=== PATIENT | male | born 1955 | race Caucasian/White ===

== ENCOUNTER → 2017-05-26 | Day surgery (SDC) | payer BC, OTHER ==
[~2017-05-26] MED LIST: IV RINGERS SOLUTION,LACTATED 1,000 ML IV ONE; LIDOCAINE 2% PF Vial for OR 5 ML VIAL. ONE; PROPOFOL 40 ML IV ONE
== END | disposition home or self-care (01) ==
LOC: SURG 11:23
PROVIDERS: ATTEND Internal Medicine Gastroenterology
DX: Z12.11 Encounter for screening for malignant neoplasm of colon (principal); K57.30 Diverticulosis of large intestine without perforation or abscess without bleeding; I10 Essential (primary) hypertension; K21.9 Gastro-esophageal reflux disease without esophagitis
CPT/HCPCS: 45378; J2704; J7120; J2001

== ENCOUNTER → 2020-01-05 | Outpatient (CLI) | payer MEDICARE ==
--- NOTE | 2020-01-05 13:52 | RAD ---
CT abdomen and pelvis without contrast PQRS statement: CT scans at this facility use dose reduction including either automated exposure control, iterative reconstructions, and /or weight based radiation dosing via mA and kV modification when appropriate to reduce radiation dose to as low as reasonably achievable. HISTORY: Abdominal pain with vomiting. Abdomen findings: 5 mm solid nodule left lower lobe image 14. Mild dependent subpleural groundglass densities likely atelectasis lung bases. Right coronary calcified plaque. Lumbar scoliosis and bulky disc osteophytes and facet spurs with spinal canal and neural foraminal stenoses. Hypodense liver likely fatty. Tiny gallstone. Very mild perinephric edema. No urinary calculi or hydronephrosis. Calcified likely aorta and iliac arteries. There appears be mild edema surrounding the head of pancreas extending to the root of small bowel mesentery suspicious for mild changes of pancreatitis, the tail the pancreas is atrophic there is indistinct 2 x 1 severe hypodensity of the distal tail the pancreas images 37-38 a small cyst or underlying mass lesion is possible. Adrenal glands and spleen are unremarkable. Sigmoid diverticulosis and wall thickening with minimal soft tissue edema along the mesenteric border without a perforated diverticulum low-grade diverticulitis is possible. Appendix is negative. No bowel obstruction. No abdominal fluid. Pelvis findings: Left internal iliac artery 1.4 cm fusiform aneurysm image 95 whereas the more normal proximal diameter of the vessel is 0.6 cm. Bladder is collapsed and there appears to be bladder wall thickening. No bladder calculi evident. Prostate fiducials. Rectum unremarkable. There is a 2 cm density of the left internal inguinal ring lateral which is a 3 cm focus of fat most likely changes of hernia repair with a mesh plug of a small recurrent 3 cm hernia lateral of the plug. The spermatic cord extends inferior of this density ruling out a undescended testicle. IMPRESSION: 1. Mild edema at the head of the pancreas raising suspicion of acute pancreatitis. Separately the distal tail of pancreas has a subtle 2 x 1 cm hypodensity raising the possibility of a focal cystic or solid lesion. This could be further assessed with outpatient MR imaging. 2. Sigmoid diverticulosis with mild groundglass mesenteric edema raising the possibility of low-grade diverticulitis. 3. Left inguinal hernia repair as described above. 4. 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 5. Appendix is negative. 6. 5 mm solid nodule of the left lower lobe. Per Fleischner guidelines if the patient has risk factors for malignancy optional CT follow-up in 12 months would be advised, otherwise no follow-up is necessary. Electronically signed by: Jose C Zhu MD (01/05/2020 1:50 PM) [id number]
== END | disposition home or self-care (01) ==
LOC: CT 12:46
PROVIDERS: ATTEND Family Medicine
DX: C25.0 Malignant neoplasm of head of pancreas (principal); K85.00 Idiopathic acute pancreatitis without necrosis or infection; R11.2 Nausea with vomiting, unspecified; J98.11 Atelectasis; M41.86 Other forms of scoliosis, lumbar region; I25.10 Atherosclerotic heart disease of native coronary artery without angina pectoris; M25.78 Osteophyte, vertebrae; K76.0 Fatty (change of) liver, not elsewhere classified; I72.3 Aneurysm of iliac artery; K40.90 Unilateral inguinal hernia, without obstruction or gangrene, not specified as recurrent; K57.30 Diverticulosis of large intestine without perforation or abscess without bleeding; K57.32 Diverticulitis of large intestine without perforation or abscess without bleeding
CPT/HCPCS: 74176

== ENCOUNTER 2020-03-06 14:39 | Inpatient (IN) | payer MEDICARE ==
[~2020-03-06] VITALS: Ht 165.1 cm; Wt 66.3 kg
[2020-03-06] MEDS ORDERED: ONDANSETRON ODT 4 MG TAB.RAPDIS PO PRN (15:30)
[2020-03-06] MEDS ORDERED: IV 1/2 NORMAL SALINE 1,000 ML IV PRN (15:30)
[2020-03-06 15:32] VITALS: BP 119/78
[2020-03-06] MEDS ORDERED: PROC10TA57 PO (15:46)
[2020-03-06] MEDS ORDERED: GUAI600T47 PO (15:46)
[2020-03-06] MEDS ORDERED: OMEP20CA16 PO (15:46)
[2020-03-06] MEDS ORDERED: POTA8TAB45 PO (15:46)
[2020-03-06] MEDS ORDERED: TRIA50CA PO (15:46)
[2020-03-06] MEDS ORDERED: TAMS0.4C97 PO (15:46)
[2020-03-06] MEDS ORDERED: METO-239 PO (15:46)
[2020-03-06] MEDS ORDERED: PYRI60TA PO (15:46)
--- NOTE | 2020-03-06 16:05 | RAD ---
EXAM: Chest, 2 views. HISTORY: Pancreatic cancer. COMPARISON: None. FINDINGS: 2 views of the chest are obtained. There is suspected lateral right mid thoracic and bilateral lower lobe interstitial infiltrate. There is no pleural effusion or pneumothorax. The heart is normal in size. IMPRESSION: Suspected multifocal interstitial infiltrate involving the lateral right upper and middle lobes and bilateral lower lobes. No consolidated pneumonia is seen. Electronically signed by: Rita Murrieta MD (03/06/2020 4:02 PM) [id number]
--- NOTE | 2020-03-06 16:59 | RAD ---
EXAM: CT Abdomen and Pelvis without IV contrast INDICATION: Reason: ab pain / Spl. Instructions: / History: TECHNIQUE: Multi-detector row CT images were acquired from the lung bases through the abdomen and pelvis without the use of IV contrast. Sagittal and coronal images were acquired from the transaxial data. All CT scans performed at this facility utilize dose optimization techniques as appropriate to the exam, including the following: Automated exposure control and adjustment of the mA and/or KV according to patient size (this includes techniques or standardized protocols for targeted exams where dose is indication/reason for exam). ORAL CONTRAST: None COMPARISON: 01/05/20 CT abd pel without FINDINGS: The absence of IV contrast limits evaluation of soft tissue pathology. LOWER CHEST: Unremarkable LIVER: Severe diffuse hepatic steatosis is redemonstrated. BILIARY SYSTEM: Gallbladder is mildly distended. Bile ducts are not dilated. PANCREAS: Soft tissue stranding around the pancreatic head is slightly more apparent than before and is nonspecific. No discrete fluid collection or ductal dilation is apparent. SPLEEN: Unremarkable ADRENALS: Unremarkable KIDNEYS & URETERS: No hydronephrosis. Mild bilateral perirenal soft tissue stranding is present. BLADDER: Bladder is partly contracted. Nonspecific diffuse bladder wall thickening is present. REPRODUCTIVE ORGANS: Unremarkable GASTROINTESTINAL: There is diffuse interlobular colonic wall thickening present in scattered lesions, primarily affecting the rectosigmoid colon where numerous diverticuli are also present but also affecting the right colon to a similar extent. Appendix is normal. Stomach and small bowel are relatively unremarkable. There is a fat-containing left inguinal hernias that a portion of the distal descending colon protrudes into. MESENTERY/PERITONEUM/RETROPERITONEUM: There are bilateral inguinal hernias that contain ovoid soft tissue, favored to represent small amounts of fluid. There is new perihepatic ascites. VASCULAR: Scattered arterial calcifications. No aneurysm. LYMPH NODES: Right groin soft tissue fullness is favored to reflect fluid no definite lymphadenopathy is appreciated OSSEOUS & SOFT TISSUES: Unremarkable IMPRESSION: Superimposed on pre-existing severe diffuse hepatic steatosis are new findings of ascites and worsening findings of colitis. There is equivocal evidence of acute pancreatitis around the pancreatic head as well. Correlate clinically. No discrete fluid collection identified. Electronically signed by: Mohan Tirado MD (03/06/2020 4:56 PM) [facility] [place]
[2020-03-06 17:19] LABS: BASO % 1 % (0-3); EOS % 0 % (0-3); HEMATOCRIT 40.6 % (39.0-53.0); HEMOGLOBIN 14.2 g/dL (13.0-17.5); LYMPH # 0.3 x10^3/uL (1.0-4.8); LYMPH % 4 % (24-48); MEAN CORPUSCULAR HEMOGLOBIN 36 pg (25-35); MEAN CORPUSCULAR HGB CONC 35 g/dL (31-37); MEAN CORPUSCULAR VOLUME 102 fL (79-100); MONO # 0.7 x10^3/uL (0.0-1.1); MONO % 11 % (0-9); NEUT # 5.9 x10^3uL (1.8-7.7); NEUT % 85 % (31-73); PLATELET COUNT 107 x10^3/uL (140-400); RED CELL DISTRIBUTION WIDTH 16.2 % (11.5-14.5); WHITE BLOOD COUNT 6.9 x10^3/uL (4.0-11.0)
[2020-03-06 17:27] LABS: ALBUMIN 2.3 g/dL (3.4-5.0); ALBUMIN/GLOBULIN RATIO 0.5 (1.0-1.7); CALCIUM 8.6 mg/dL (8.5-10.1); CREATININE 0.8 mg/dL (0.7-1.3); GFR 96.7; TOTAL BILIRUBIN 11.9 mg/dL (0.2-1.0); TOTAL PROTEIN 6.6 g/dL (6.4-8.2)
[2020-03-06 17:38] LABS: POTASSIUM 2.8 mmol/L (3.5-5.1)
[2020-03-06] MEDS ORDERED: HALOPERIDOL LACT 5 MG/ML VIAL. IM PRN (18:00)
[2020-03-06] MEDS: POTASSIUM CHLORIDE 10MEQ 100 ML IV SCH ×4 (18:00→21:21)
[2020-03-06] MEDS ORDERED: chlordiazePOXIDE HCL 25 MG CAPSULE PO PRN (18:00)
[2020-03-06] MEDS ORDERED: LORazepam 1 MG TABLET PO PRN (18:00)
[2020-03-06] MEDS ORDERED: cloNIDine HCL 0.1 MG TABLET PO PRN (18:00)
[2020-03-06] MEDS: IV 1/2 NORMAL SALINE 1,000 ML IV SCH (19:03)
[2020-03-06 20:46] VITALS: BP 124/77
[2020-03-06 21:59] LABS: CLARITY,URINE CLEAR; COLOR,URINE AMBER; GLUCOSE,URINE 100 mg/dL (NEG)
[2020-03-06 22:00] LABS: BILIRUBIN,URINE LARGE (NEG)
[2020-03-06 22:01] LABS: NITRITE,URINE NEG (NEG); RBC,URINE 0 /HPF (0-2)
[2020-03-06 22:02] LABS: BACTERIA,URINE FEW /HPF (0-FEW)
[2020-03-06 22:44] VITALS: BP 131/76
[2020-03-07 02:26] LABS: CREATININE 0.7 mg/dL (0.7-1.3); GFR 112.8
[2020-03-07 02:29] LABS: POTASSIUM 2.3 mmol/L (3.5-5.1)
[2020-03-07] MEDS: POTASSIUM CHLORIDE 10MEQ 100 ML IV SCH ×8 (02:41→13:57)
[2020-03-07 02:42] VITALS: BP 128/75
[2020-03-07] MEDS: IV 1/2 NORMAL SALINE 1,000 ML IV SCH ×4 (02:44→17:00)
[2020-03-07 05:11] VITALS: BP 127/72
[2020-03-07 08:58] LABS: CREATININE 0.7 mg/dL (0.7-1.3); GFR 112.8
[2020-03-07] MEDS ORDERED: FLU VACC QS 2020-21(6MOS+)/PF 0.5 ML SYRINGE. VAX IM ONE (09:00)
[2020-03-07 09:04] LABS: POTASSIUM 2.3 mmol/L (3.5-5.1)
[2020-03-07] MEDS ORDERED: ELECTROLYTE (NON-ICU) PROTOCOL. MC PRN (09:15)
[2020-03-07 10:56] VITALS: BP 154/77
[2020-03-07 11:15] LABS: BGAS PH 7.58 (7.35-7.46)
[2020-03-07 14:28] VITALS: BP 114/74
[2020-03-07] MEDS: MVI, ADULT NO.4 WITH VIT K 10 ML, THIAMINE INJ 100 MG, FOLIC ACID INJ 1 MG in IV NORMAL... IV SCH (16:16)
[2020-03-07 19:01] VITALS: BP 131/83
[2020-03-07] MEDS: LACTOBACILLUS RHAMNOSUS GG 1 CAPSULE. PO SCH (20:57)
[2020-03-07 23:28] VITALS: BP 149/81
[2020-03-08] MEDS: IV 1/2 NORMAL SALINE 1,000 ML IV SCH ×4 (02:27→15:02)
--- NOTE | 2020-03-08 02:39 | PN ---
DATE: 03/07/2020 SUBJECTIVE: A 64-year-old male in with pancreatic cancer, biliary obstruction, acute pancreatitis, dehydration, alcohol withdrawal. The patient is very somnolent; however, he was running a temperature of 101.1 (NC). OBJECTIVE: VITAL SIGNS: Blood pressure 154/77, respiratory rate 20, pulse 101. GENERAL: The patient is barely arousable, but the nurses have been just giving some type of sedative to help him relax a little, Librium. LUNGS: Diminished, but basically clear. CARDIOVASCULAR: Regular sinus rhythm. ABDOMEN: Soft, nontender. EXTREMITIES: No clubbing, cyanosis, nor edema. NEUROLOGIC: Intact. IMPRESSION: The patient is on IV antibiotic therapy of Levaquin and Rocephin and we will continue to monitor his progression as we progress along with this young man. Otherwise, he has noted a pancreatic cancer, hyperbilirubinemia, acute pancreatitis, pneumonia of unspecified etiology, alcohol withdrawal, hypokalemia, metabolic alkalosis, diffuse hepatic steatosis, ascites, colitis (NC). PLAN: As above. We will continue with antibiotic therapy and make further evaluation on him as indicated. NATHANAEL GUPTA MD DR: DORIS/dallin JOB#: [id number] / [id number]
[2020-03-08 06:20] VITALS: BP 115/73
[2020-03-08] MEDS: MVI, ADULT NO.4 WITH VIT K 10 ML, THIAMINE INJ 100 MG, FOLIC ACID INJ 1 MG in IV NORMAL... IV SCH (08:19)
[2020-03-08 08:32] LABS: BASO % 0 % (0-3); EOS % 0 % (0-3); HEMATOCRIT 40.7 % (39.0-53.0); HEMOGLOBIN 13.8 g/dL (13.0-17.5); LYMPH # 0.3 x10^3/uL (1.0-4.8); LYMPH % 5 % (24-48); MEAN CORPUSCULAR HEMOGLOBIN 35 pg (25-35); MEAN CORPUSCULAR HGB CONC 34 g/dL (31-37); MEAN CORPUSCULAR VOLUME 104 fL (79-100); MONO # 0.6 x10^3/uL (0.0-1.1); MONO % 11 % (0-9); NEUT # 4.7 x10^3uL (1.8-7.7); NEUT % 83 % (31-73); PLATELET COUNT 83 x10^3/uL (140-400); RED BLOOD COUNT 3.91 x10^6/uL (4.30-5.70); RED CELL DISTRIBUTION WIDTH 16.3 % (11.5-14.5); WHITE BLOOD COUNT 5.6 x10^3/uL (4.0-11.0)
[2020-03-08 08:49] LABS: CALCIUM 7.2 mg/dL (8.5-10.1); CREATININE 0.7 mg/dL (0.7-1.3); GFR 112.8
[2020-03-08 08:58] LABS: POTASSIUM 2.5 mmol/L (3.5-5.1)
[2020-03-08] MEDS: POTASSIUM CHLORIDE 10MEQ 100 ML IV SCH ×8 (10:43→22:15)
[2020-03-08] MEDS: LACTOBACILLUS RHAMNOSUS GG 1 CAPSULE. PO SCH ×2 (10:58→22:36)
[2020-03-08 11:30] VITALS: BP 128/81
[2020-03-08] MEDS ORDERED: AZITHROMYCIN 250 MG TABLET. PO SCH (14:15)
[2020-03-08] MEDS ORDERED: AZITHROMYCIN 250 MG in IV NORMAL SALINE 250ML 250 ML IV SCH (15:00)
[2020-03-08] MEDS: AZITHROMYCIN 500 MG in IV NORMAL SALINE 250ML 250 ML IV SCH (15:31)
[2020-03-08 15:56] VITALS: BP 110/65
[2020-03-08 16:43] LABS: CALCIUM 7.3 mg/dL (8.5-10.1); CREATININE 0.6 mg/dL (0.7-1.3); GFR 134.8
[2020-03-08 16:47] LABS: POTASSIUM 2.8 mmol/L (3.5-5.1)
[2020-03-08 18:56] VITALS: BP 122/79
--- NOTE | 2020-03-08 19:37 | PN ---
DATE: 03/08/2020 SUBJECTIVE: A 64-year-old gentleman with pancreatitis, colitis. The patient is resting fairly comfortably, still very jaundiced. No complaints. Blood pressure 115/70, respiratory rate 20, pulse 100, low-grade temperature of 99. The patient did have suspected infiltrates noted with pneumonia with his colitis. He is on Rocephin and Levaquin. COVID-19 is still pending. It is still low with his potassium where he is on electrolyte replacement. We will repeat that. His INR is 1.6, so I do not really see the need to go ahead and adjust for anything there as far as blood thinners. OBJECTIVE: LUNGS: Otherwise, the patient's lungs are diminished, poor breath sounds. CARDIOVASCULAR: Tachycardic. ABDOMEN: Soft, protuberant, bloated. Positive bowel sounds. Jaundiced all over. EXTREMITIES: No clubbing, cyanosis or edema. NEUROLOGIC: Intact. The patient's family has been notified of the situation. IMPRESSION: Therefore, pancreatitis, pneumonia, colitis, hyperbilirubinemia, alcohol withdrawal, hypokalemia, metabolic alkalosis, diffuse hepatic steatosis, ascites. NATHANAEL GUPTA MD DR: DORIS/dallin JOB#: [id number] / [id number]
[2020-03-08] MEDS: CLINDAMYCIN 600MG PREMIX 50 ML IV SCH (22:37)
[2020-03-08 22:53] VITALS: BP 111/73
[2020-03-09] MEDS: IV 1/2 NORMAL SALINE 1,000 ML IV SCH ×2 (02:30→11:02)
[2020-03-09 06:05] VITALS: BP 134/86
[2020-03-09] MEDS: CLINDAMYCIN 600MG PREMIX 50 ML IV SCH ×2 (06:09→14:00)
[2020-03-09] MEDS: MVI, ADULT NO.4 WITH VIT K 10 ML, THIAMINE INJ 100 MG, FOLIC ACID INJ 1 MG in IV NORMAL... IV SCH (08:57)
[2020-03-09] MEDS: LACTOBACILLUS RHAMNOSUS GG 1 CAPSULE. PO SCH ×2 (09:00→20:52)
[2020-03-09 10:43] VITALS: BP 138/85
[2020-03-09] MEDS ORDERED: ELECTROLYTE (NON-ICU) PROTOCOL. MC PRN (12:45)
[2020-03-09] MEDS: POTASSIUM CHLORIDE 30 MEQ in IV 1/2 NORMAL SALINE 1,000 ML IV SCH (13:39)
[2020-03-09] MEDS: AZITHROMYCIN 500 MG in IV NORMAL SALINE 250ML 250 ML IV SCH (15:12)
[2020-03-09 15:29] VITALS: BP 130/84
[2020-03-09 19:12] VITALS: BP_SYST 110; BP_SYST 113; BP_DIAS 65; BP_DIAS 74
--- NOTE | 2020-03-09 22:14 | PN ---
DATE: SUBJECTIVE: A 64-year-old gentleman in with acute pancreatitis and colitis. OBJECTIVE: GENERAL: The patient actually looks a little less jaundiced today than he has. He is still basically not responding very well. VITAL SIGNS: Blood pressure 138/85, respiratory rate 24, pulse 100. He is down to afebrile. He was up to 99.9. He continues on IV antibiotic therapy. LUNGS: The patient's lungs are diminished. He cannot take a deep breath. ABDOMEN: Soft, nontender. No rebound or guarding. Positive bowel sounds, no hepatosplenomegaly noted except in the pancreatic area where he does grimace a little bit on palpation. Positive bowel sounds. Some bloating noted. EXTREMITIES: No clubbing, cyanosis, nor edema. NEUROLOGIC: The patient is very somnolent and basically unresponsive. LABORATORY DATA: The patient's potassium is still low at 2.8. He has been placed on additional fluids with potassium in it and sodium in it as well as making further evaluation. He cannot swallow right now, so we are having to give him everything by IV. He is on a banana bag as well from an alcohol withdrawal. IMPRESSION: Pancreatitis, pneumonia of unspecified etiology, bilateral colitis, hyperbilirubinemia, alcohol withdrawal, hypokalemia, metabolic alkalosis, diffuse hepatic steatosis and ascites. PLAN: Continue with present therapy, get that potassium up on his hypokalemia and make further evaluation on him as indicated. NATHANAEL GUPTA MD DR: DORIS/dallin JOB#: [id number] / [id number]
[2020-03-10] MEDS: CLINDAMYCIN 600MG PREMIX 50 ML IV SCH ×4 (00:09→22:13)
[2020-03-10 00:19] VITALS: BP 104/73
[2020-03-10] MEDS: POTASSIUM CHLORIDE 30 MEQ in IV 1/2 NORMAL SALINE 1,000 ML IV SCH ×3 (03:31→20:28)
[2020-03-10 06:44] VITALS: BP 145/72
[2020-03-10 07:22] LABS: CALCIUM 7.5 mg/dL (8.5-10.1); CREATININE 0.6 mg/dL (0.7-1.3); GFR 134.8
[2020-03-10] MEDS: LACTOBACILLUS RHAMNOSUS GG 1 CAPSULE. PO SCH ×2 (09:00→20:28)
[2020-03-10] MEDS ORDERED: [UNRECOGNIZED DRUG - REMARK] IV ONE (10:00)
[2020-03-10 10:20] VITALS: BP 112/75
[2020-03-10] MEDS: AZITHROMYCIN 500 MG in IV NORMAL SALINE 250ML 250 ML IV SCH (13:43)
[2020-03-10 15:19] VITALS: BP 81/59
[2020-03-10 18:56] VITALS: BP 113/74
[2020-03-10 23:19] VITALS: BP 125/87
--- NOTE | 2020-03-11 00:49 | PN ---
DATE: SUBJECTIVE: The patient came in with nausea, jaundice, pancreatitis, alcohol withdrawal. The patient is little bit more alert this morning, he is able to utter few words and also respond to basic questions. He denies any abdominal pain. Blood pressure 110/70, respiratory rate 20, pulse 90, he is running low-grade temperature. He did have that chest x-ray that showed a pneumonic density, which probably is related to his fever or possible pancreatitis. OBJECTIVE: VITAL SIGNS: His blood pressure is 110/70, respiratory rate 20, pulse 90. As noted, temperature of 99.4. GENERAL: The patient is little bit more alert than he has been, still jaundiced, but not quite as bad as he has been. LUNGS: Diminished. CARDIOVASCULAR: Regular sinus rhythm. ABDOMEN: Soft, diffuse tenderness, no rebound or guarding. Positive bowel sounds, no hepatosplenomegaly. EXTREMITIES: No clubbing, cyanosis or edema. LABORATORY DATA: The patient's labs are looking pretty good. His potassium, which has been a problem in the 2 range just stayed up at 3.3 and we will continue to monitor him on that and hopefully make arrangements to have possibly even long-term care. If we were able to find him a facility since he will need continued rehabilitation. IMPRESSION: Abdominal pain with nausea, vomiting, dehydration, exposure, hypotension. Blood pressure did drop. We will continue to monitor that. Continue with fluids, 80/60, respiratory rate 22, pulse 90 latest vital signs. Otherwise is pancreatitis, pneumonia, colitis, hyperbilirubinemia, alcohol withdrawal, hypokalemia, metabolic alkalosis, diffuse hepatic steatosis, possible multifocal interstitial infiltrate, will be followed up accordingly on that. NATHANAEL GUPTA MD DR: DORIS/dallin JOB#: [id number] / [id number]
[2020-03-11] MEDS: POTASSIUM CHLORIDE 30 MEQ in IV 1/2 NORMAL SALINE 1,000 ML IV SCH (05:14)
[2020-03-11] MEDS: CLINDAMYCIN 600MG PREMIX 50 ML IV SCH ×3 (05:15→22:05)
[2020-03-11 06:27] LABS: CREATININE 0.5 mg/dL (0.7-1.3); GFR 166.4; POTASSIUM 3.1 mmol/L (3.5-5.1)
[2020-03-11 06:32] LABS: CALCIUM 7.1 mg/dL (8.5-10.1)
[2020-03-11 06:34] VITALS: BP 138/86
[2020-03-11] MEDS: DEXTROSE IV SCH ×2 (08:15→22:01)
[2020-03-11] MEDS: POTASSIUM CHLORIDE IV SCH ×2 (08:15→22:01)
[2020-03-11] MEDS: NACL IV SCH ×2 (08:15→22:01)
[2020-03-11] MEDS: LACTOBACILLUS RHAMNOSUS GG 1 CAPSULE. PO SCH ×2 (08:26→21:00)
[2020-03-11] MEDS ORDERED: MVI, ADULT NO.4 WITH VIT K 10 ML, THIAMINE INJ 100 MG, FOLIC ACID INJ 1 MG in IV NORMAL... IV SCH (09:00)
[2020-03-11 11:00] VITALS: BP 118/78
[2020-03-11 15:00] VITALS: BP 126/70
[2020-03-11] MEDS: AZITHROMYCIN 500 MG in IV NORMAL SALINE 250ML 250 ML IV SCH (15:28)
--- NOTE | 2020-03-11 16:57 | RAD ---
EXAM: PORTABLE CHEST 1V 03/11/2020 6:28 PM CLINICAL INDICATION: Pneumonia COMPARISON: Chest radiograph 03/06/2020 TECHNIQUE: AP upright view of the chest FINDINGS: The heart and mediastinum are normal. Lungs are hypoexpanded. There are increased consolidative opacities in the right upper lobe. The left lung is clear. No pleural effusion or pneumothorax. Pulmonary vascularity is normal. The thoracic skeleton is intact. IMPRESSION: Worsened right upper lobe pneumonia. Electronically signed by: Kaye Neff MD (03/11/2020 4:54 PM) [id number]
[2020-03-11 18:44] VITALS: BP 126/79
[2020-03-11 20:13] VITALS: BP 139/83
[2020-03-12 00:22] VITALS: BP 122/79
[2020-03-12] MEDS: POTASSIUM CHLORIDE IV SCH (04:33)
[2020-03-12] MEDS: NACL IV SCH (04:33)
[2020-03-12] MEDS: DEXTROSE IV SCH (04:33)
[2020-03-12] MEDS: CLINDAMYCIN 600MG PREMIX 50 ML IV SCH ×3 (05:36→20:42)
[2020-03-12 05:49] VITALS: BP 119/75
[2020-03-12] MEDS: LACTOBACILLUS RHAMNOSUS GG 1 CAPSULE. PO SCH ×2 (09:00→20:40)
[2020-03-12 10:47] VITALS: BP 110/70
[2020-03-12] MEDS: AA 3%/ELECTROLYTE-TPN SOLN/GLY 1,000 ML IV SCH (10:54)
--- NOTE | 2020-03-12 11:16 | PN ---
DATE: SUBJECTIVE: A 64-year-old male who actually was again a little bit more alert today, although he pretty much does not like to get up. He is confined to bed and unfortunately, he has an increase in his pneumonic process as noted on the chest x-ray. The patient presently was on azithromycin, clindamycin and Rocephin but apparently the right upper lobe pneumonia is progressing per chest x-ray although the patient really does not communicate well enough to determine that. OBJECTIVE VITAL SIGNS: He is afebrile, blood pressure 126/70, respiratory rate 18, pulse 86. GENERAL: The patient is arousable. Makes some eye contact. Does talk a little bit, but by the same token was not really able to express himself very easily. LUNGS: Diminished, primarily in the right upper lobe. CARDIOVASCULAR: Regular sinus rhythm. EXTREMITIES: No clubbing, ____. ABDOMEN: Soft, still distended, but not quite as bad as it has been. 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 IMPRESSION: Pneumonia, hypokalemia, alcohol detox, pancreatitis, colitis, hyperbilirubinemia, alcohol withdrawal, metabolic alkalosis, diffuse hepatic steatosis, ascites. PLAN: We will continue on IV antibiotic therapy for now. We will discuss with family their wishes for further aggressive therapy and the like. NATHANAEL GUPTA MD DR: DORIS/dallin JOB#: [id number] / [id number]
[2020-03-12 15:08] VITALS: BP 123/85
[2020-03-12] MEDS: AZITHROMYCIN 500 MG in IV NORMAL SALINE 250ML 250 ML IV SCH (15:34)
[2020-03-12 20:11] VITALS: BP 130/84
[2020-03-13 00:02] VITALS: BP 127/88
[2020-03-13] MEDS: AA 3%/ELECTROLYTE-TPN SOLN/GLY 1,000 ML IV SCH ×2 (01:55→21:32)
[2020-03-13] MEDS: CLINDAMYCIN 600MG PREMIX 50 ML IV SCH ×3 (05:53→21:42)
[2020-03-13 06:00] VITALS: BP 132/85
[2020-03-13] MEDS: LACTOBACILLUS RHAMNOSUS GG 1 CAPSULE. PO SCH ×2 (09:00→21:00)
[2020-03-13 11:05] VITALS: BP 102/76
--- NOTE | 2020-03-13 12:56 | PN ---
DATE: SUBJECTIVE: A 64-year-old male in with pneumonia, possible alcohol detoxification, jaundice, a little bit more alert, not very much, very lethargic, but was able to mumble a few words. OBJECTIVE: VITAL SIGNS: Blood pressure 130/84, respiratory rate 20, pulse 90, afebrile. GENERAL: The patient arousable, but not by much. CVR: Exam is regular sinus rhythm. ABDOMEN: Soft, nontender. LUNGS: Show diminished breath sounds in the right upper lobe. IMPRESSION: Right upper lobe pneumonia, hypokalemia, alcohol detoxification, pancreatitis, colitis, hyperbilirubinemia, alcohol withdrawal, metabolic alkalosis, diffuse hepatic steatosis and ascites. PLAN: We will put him on a procalamine drip for additional calories and see if he can start to eat. We are trying to get him placed into a skilled facility to continue IV antibiotic therapy in lieu of the fact that he still continues to have this pneumonia and he is very sedate, but that is not helping matters. NATHANAEL GUPTA MD DR: DORIS/dallin JOB#: [id number] / [id number]
[2020-03-13 15:03] LABS: BASO # 0.1 x10^3/uL (0.0-0.2); BASO % 2 % (0-3); EOS % 1 % (0-3); HEMOGLOBIN 14.2 g/dL (13.0-17.5); LYMPH # 0.4 x10^3/uL (1.0-4.8); LYMPH % 5 % (24-48); MEAN CORPUSCULAR HEMOGLOBIN 36 pg (25-35); MEAN CORPUSCULAR HGB CONC 35 g/dL (31-37); MEAN CORPUSCULAR VOLUME 104 fL (79-100); MONO # 0.8 x10^3/uL (0.0-1.1); MONO % 10 % (0-9); NEUT # 6.9 x10^3uL (1.8-7.7); NEUT % 84 % (31-73); PLATELET COUNT 177 x10^3/uL (140-400); RED BLOOD COUNT 3.96 x10^6/uL (4.30-5.70); RED CELL DISTRIBUTION WIDTH 17.5 % (11.5-14.5); WHITE BLOOD COUNT 8.2 x10^3/uL (4.0-11.0)
[2020-03-13 15:10] LABS: CALCIUM 7.6 mg/dL (8.5-10.1); CREATININE 0.8 mg/dL (0.7-1.3); GFR 96.7
[2020-03-13 15:15] VITALS: BP 91/67
[2020-03-13 15:15] LABS: POTASSIUM 2.7 mmol/L (3.5-5.1)
[2020-03-13] MEDS: POTASSIUM CHLORIDE 10MEQ 100 ML IV SCH ×4 (15:33→19:22)
[2020-03-13] MEDS: AZITHROMYCIN 500 MG in IV NORMAL SALINE 250ML 250 ML IV SCH (15:47)
[2020-03-13 20:20] VITALS: BP 123/80
[2020-03-13 22:32] VITALS: BP 94/60
[2020-03-14 05:04] VITALS: BP 121/84
[2020-03-14] MEDS: CLINDAMYCIN 600MG PREMIX 50 ML IV SCH ×3 (05:06→21:03)
[2020-03-14 06:32] LABS: CALCIUM 7.5 mg/dL (8.5-10.1); CREATININE 0.7 mg/dL (0.7-1.3); GFR 112.8
[2020-03-14 06:34] LABS: POTASSIUM 2.9 mmol/L (3.5-5.1)
[2020-03-14] MEDS ORDERED: POTASSIUM BICARB 10 MEQ EFFERVESCENT TABLET. PO ONE (07:00)
[2020-03-14] MEDS: SPIRONOLACTONE 25 MG TABLET PO SCH (08:31)
[2020-03-14] MEDS: LACTOBACILLUS RHAMNOSUS GG 1 CAPSULE. PO SCH ×2 (08:31→19:59)
[2020-03-14 10:39] VITALS: BP 120/80
--- NOTE | 2020-03-14 14:57 | PN ---
DATE: SUBJECTIVE: A 64-year-old gentleman, little bit more alert today than he has been. Physical therapy actually got him up and moved him around a little bit. He is eating a little better. He is on procalamine for nutrition, still very weak, still needs rehabilitation. Still needs IV antibiotic therapy for his chest x-ray that shows a right upper lobe pneumonia, but for the first time he has been able to get out of bed of course with double assistance. OBJECTIVE: VITAL SIGNS: Blood pressure approximately 90/70, respiratory rate 20, pulse 110, afebrile. HEENT: The patient's head was atraumatic, normocephalic. Eyes: PERRLA without jaundice. Mouth and Throat: Normal. NECK: Supple. LUNGS: Diminished throughout. The patient has a decreased affect, still jaundiced, but markedly improved in that regard. The patient's white count, hemoglobin, hematocrit are still stable. The patient had a potassium drop of 2.7 and I will try to adjust that with pharmacy on his peripheral nutritional supplement. Otherwise, the patient is making fairly good progress and will continue with the TPN there. IMPRESSION: Sepsis, pneumonia post-alcohol withdrawal, severe hypokalemia, hyperbilirubinemia, alcohol detox, pancreatitis, colitis, severe malnutrition, general debilitation overall. NATHANAEL GUPTA MD DR: DORIS/dallin JOB#: [id number] / [id number]
[2020-03-14 15:29] VITALS: BP 109/75
[2020-03-14] MEDS: AZITHROMYCIN 500 MG in IV NORMAL SALINE 250ML 250 ML IV SCH (15:30)
[2020-03-14 20:15] VITALS: BP 114/74
[2020-03-14 22:01] VITALS: BP 109/72
[2020-03-15 05:00] VITALS: BP 100/66
[2020-03-15] MEDS: CLINDAMYCIN 600MG PREMIX 50 ML IV SCH ×3 (05:03→21:45)
[2020-03-15 11:21] VITALS: BP 93/57
[2020-03-15] MEDS: LACTOBACILLUS RHAMNOSUS GG 1 CAPSULE. PO SCH ×2 (11:29→21:44)
[2020-03-15] MEDS: SPIRONOLACTONE 25 MG TABLET PO SCH (11:30)
--- NOTE | 2020-03-15 14:57 | RAD ---
Examination: PORTABLE CHEST 1V History: Reason: pneumnoia / Spl. Instructions: / History: Comparison/Correlation: 03/11/2020 Findings: Portable frontal view of the chest was obtained. Decreased right lateral mid to lower thoracic infiltrate is present. Left lung field is clear. No pneumothorax. No new infiltrates. No significant or definite effusion. Impression: Decreased right lung infiltrate. Electronically signed by: Robin Machado MD (03/15/2020 2:54 PM) [id number]
[2020-03-15 15:06] VITALS: BP 98/65
--- NOTE | 2020-03-15 16:11 | PN ---
DATE: SUBJECTIVE: The patient is actually doing a little bit better, was working with the physical therapist, still needs quite a bit of attention getting out of bed and walking, but actually seems to be doing well. He still has right upper lobe pneumonia, but he has made tremendous progress here in the last few days. OBJECTIVE: VITAL SIGNS: Blood pressure 110/70, respiration 18, pulse 96. He is afebrile. GENERAL: Very weak jaundiced appearing individual. LUNGS: Diminished, but clear. CARDIOVASCULAR: Stable. ABDOMEN: Soft, nontender. IMPRESSION: Situation of sepsis, pneumonia of unspecified etiology, right upper lobe. Hypokalemia, alcohol detoxification, pancreatitis, colitis, hyperbilirubinemia, metabolic alkalosis, diffuse hepatic steatosis. NATHANAEL GUPTA MD DR: DORIS/dallin JOB#: [id number] / [id number]
[2020-03-15] MEDS: AZITHROMYCIN 500 MG in IV NORMAL SALINE 250ML 250 ML IV SCH (16:44)
[2020-03-15 18:53] VITALS: BP 102/71
[2020-03-15] MEDS: AA 3%/ELECTROLYTE-TPN SOLN/GLY 1,000 ML IV SCH (23:59)
[2020-03-16 05:10] VITALS: BP 100/66
[2020-03-16] MEDS: CLINDAMYCIN 600MG PREMIX 50 ML IV SCH ×3 (06:19→22:21)
[2020-03-16] MEDS ORDERED: POTASSIUM CHLORIDE 20 MEQ TABLET.ER. PO ONE (07:15)
[2020-03-16] MEDS: LACTOBACILLUS RHAMNOSUS GG 1 CAPSULE. PO SCH ×2 (08:37→20:24)
[2020-03-16] MEDS: SPIRONOLACTONE 25 MG TABLET PO SCH (08:37)
[2020-03-16 11:24] VITALS: BP 113/71
--- NOTE | 2020-03-16 13:37 | PN ---
DATE: SUBJECTIVE: A 64-year-old gentleman in with sepsis, pneumonia, alcohol withdrawal, jaundice. The patient seems to be doing a little better, still receiving physical and occupational therapy, still requiring 2 people to help him about; however, the patient is eating about 25%. He is still receiving peripheral nutrition, procalamine for additional caloric intake but seems to be making some progress with the situation overall. OBJECTIVE: VITAL SIGNS: Blood pressure approximately 98/60, respiratory rate 18, pulse 90, low-grade temperature of 99.3. HEENT: The patient is still jaundiced, but not nearly as much as he has been. LUNGS: Diminished throughout, poor movement of air, specifically right upper lobe. CARDIOVASCULAR: Regular sinus rhythm, S1, S2. ABDOMEN: Soft, nontender. Still somewhat bloated, but markedly less so than he has been. Otherwise he continues to make good progress overall. The patient's chest x-ray shows improvement. We will continue with present regimen and try to get him into a facility. Continue with IV antibiotic therapy. IMPRESSION: Sepsis; pneumonia of unspecified etiology, right upper lobe pneumonia; hypokalemia; alcohol detoxification; pancreatitis; colitis; hyperbilirubinemia. PLAN: Continue with present drug regimen. NATHANAEL GUPTA MD DR: DORIS/dallin JOB#: [id number] / [id number]
[2020-03-16] MEDS: AZITHROMYCIN 500 MG in IV NORMAL SALINE 250ML 250 ML IV SCH (14:28)
[2020-03-16 15:53] VITALS: BP 109/71
[2020-03-16] MEDS: AA 3%/ELECTROLYTE-TPN SOLN/GLY 1,000 ML IV SCH (18:23)
[2020-03-16 19:16] VITALS: BP 103/67
[2020-03-17 05:45] VITALS: BP 98/67
[2020-03-17] MEDS: CLINDAMYCIN 600MG PREMIX 50 ML IV SCH ×3 (05:50→21:32)
[2020-03-17 06:28] LABS: ALBUMIN 1.4 g/dL (3.4-5.0); ALBUMIN/GLOBULIN RATIO 0.4 (1.0-1.7); CALCIUM 7.9 mg/dL (8.5-10.1); CREATININE 0.8 mg/dL (0.7-1.3); GFR 96.7; TOTAL BILIRUBIN 23.3 mg/dL (0.2-1.0); TOTAL PROTEIN 5.1 g/dL (6.4-8.2)
[2020-03-17] MEDS: AA 3%/ELECTROLYTE-TPN SOLN/GLY 1,000 ML IV SCH (07:28)
[2020-03-17] MEDS: POTASSIUM CHLORIDE 10MEQ 100 ML IV SCH ×4 (07:29→12:06)
[2020-03-17] MEDS: LACTOBACILLUS RHAMNOSUS GG 1 CAPSULE. PO SCH ×2 (08:41→21:33)
[2020-03-17] MEDS: SPIRONOLACTONE 25 MG TABLET PO SCH (08:42)
[2020-03-17 10:43] VITALS: BP 103/69
--- NOTE | 2020-03-17 11:14 | PN ---
DATE: SUBJECTIVE: The patient in with multiple medical problems including sepsis, pneumonia and so forth. Chest x-ray shows some improvement. The patient is somewhat better, but still very weak, very lethargic, but much more improved than he has been. He is less jaundiced than he has been, but he is still jaundiced. The patient has only eaten only a 25% of his diet. OBJECTIVE: VITAL SIGNS: Blood pressure 104/60, respiratory rate 16, pulse 80, afebrile. GENERAL: The patient is more arousable, more alert, but still very decreased mentation. LUNGS: Diminished throughout, basically clear. CARDIOVASCULAR: Stable. ABDOMEN: Soft. Patient is extremely weak and still not eating reasonably well. He is on procalamine threaded nutritional supplementation. IMPRESSION: Sepsis, pneumonia of unspecified etiology, right upper lobe pneumonia, hypokalemia, alcohol detoxification, pancreatitis, colitis, hyperbilirubinemia. In general, failure to thrive and deconditioning throughout. Still continues to have problems with hypokalemia and we will continue to follow that. NATHANAEL GUPTA MD DR: DORIS/dallin JOB#: [id number] / [id number]
[2020-03-17] MEDS: AZITHROMYCIN 500 MG in IV NORMAL SALINE 250ML 250 ML IV SCH (15:30)
[2020-03-17 15:34] VITALS: BP 110/70
[2020-03-17 19:25] VITALS: BP 98/65
[2020-03-18] MEDS: CLINDAMYCIN 600MG PREMIX 50 ML IV SCH (05:47)
[2020-03-18 05:55] VITALS: BP 125/85
[2020-03-18] MEDS: LACTOBACILLUS RHAMNOSUS GG 1 CAPSULE. PO SCH (09:29)
[2020-03-18] MEDS: SPIRONOLACTONE 25 MG TABLET PO SCH (09:29)
--- NOTE | 2020-03-18 10:42 | PN ---
DATE: 03/17/2020 SUBJECTIVE: A 64-year-old gentleman with a multitude of medical problems including but not limited to sepsis and pneumonia. The patient is more alert today than he has been since he has been admitted. The patient was able to talk in a very ____ sentence, but at least talk and communicate that he was not in any pain and felt somewhat better, but obviously still very weak, very tired, needs 2 people support. He is eating a little bit more with his food. He had no nausea or vomiting with that and is able to keep his food down. OBJECTIVE: VITAL SIGNS: Blood pressure 110/70, respiratory rate 20, pulse 76, afebrile. GENERAL: The patient is more or less alert, may be not back to 100% where he was, but probably about 40-50% of his baseline. The patient is still jaundiced, but markedly improved. LUNGS: Diminished. ABDOMEN: Bloated, distended. PLAN: The patient will continue to be monitored carefully and make further evaluation on him and possibly have him sent to a rehab facility for further evaluation and treatment. IMPRESSION: Sepsis, pneumonia of unspecified etiology, right upper lobe pneumonia, hypokalemia, alcohol detoxification, pancreatitis, colitis and hyperbilirubinemia. NATHANAEL GUPTA MD DR: DORIS/dallin JOB#: [id number] / [id number]
[2020-03-18 11:12] VITALS: BP 102/69
[2020-03-18] MEDS ORDERED: CLINDAMYCIN HCL 150 MG CAPSULE PO SCH (13:00)
--- NOTE | 2020-03-18 14:47 | DISCH ---
DISCHARGE ORDERS DISCHARGE DATE: Mar 18, 2020 FINAL DIAGNOSIS pancreatitis,pneumonia, colitis,hyperbilirubinemia, difuse hepatic steatosis CONDITION AT DISCHARGE: Stable Code Status: DNR/DNI SNF STAY <30 DAYS: Yes HOSPICE: No HOSPICE EVALUATE & TREAT: No ADMIT TO LTAC: No POST DISCHARGE ORDERS: ACTIVITY ORDERS: Activity as tolerated WEIGHT BEARING STATUS: No restrictions DIET AFTER DISCHARGE: Regular CHECKS AFTER DISCHARGE: CHECKS AFTER DISCHARGE: Check blood press - daily NATHANAEL GUPTA MD Mar 18, 2020 14:47
[2020-03-18 15:14] VITALS: BP 110/73
[2020-03-19] MEDS ORDERED: AZITHROMYCIN 250 MG TABLET. PO SCH (09:00)
== END 2020-03-18 15:25 | DRG 871 ==
LOC: 1 SOUTH 14:39
PROVIDERS: ADMIT Family Medicine; ATTEND Family Medicine
DX: A41.9 Sepsis, unspecified organism (principal); J15.6 Pneumonia due to other Gram-negative bacteria; E43 Unspecified severe protein-calorie malnutrition; K83.1 Obstruction of bile duct; K85.90 Acute pancreatitis without necrosis or infection, unspecified; J15.9 Unspecified bacterial pneumonia; E87.3 Alkalosis; R18.8 Other ascites; F10.230 Alcohol dependence with withdrawal, uncomplicated; E86.0 Dehydration; E87.6 Hypokalemia; K52.9 Noninfective gastroenteritis and colitis, unspecified; Z20.828 Contact with and (suspected) exposure to other viral communicable diseases; Y90.9 Presence of alcohol in blood, level not specified; K76.0 Fatty (change of) liver, not elsewhere classified; Z74.01 Bed confinement status; Z68.24 Body mass index [BMI] 24.0-24.9, adult; Z88.0 Allergy status to penicillin; Z85.07 Personal history of malignant neoplasm of pancreas
CPT/HCPCS: 36415; 71045; 71046; 74176; 80048; 80053; 81001; 82088; 82140; 82803; 83605; 83690; 83735; 84132; 85025; 85610; 90471; 90686; J0456; J0696; J1956; J2060; J3480; J3490; J7030; J7042; J7050; U0003; 97110; 97116; 97530; 97535